=== PATIENT | female | born 1990 | race Hispanic/Latino ===

== ENCOUNTER 2017-01-04 20:28 | Emergency (ER) | payer OTHER ==
[~2017-01-04] VITALS: Ht 160 cm; Wt 123.8 kg
[2017-01-04 20:42] VITALS: BP 141/88; PULSE 102; RESP 16; O2SAT 99
--- NOTE | 2017-01-04 21:42 | ED.REPORT ---
HPI-Rash / Abscess Date of Service Jan 04, 2017 ED Provider: Josh Lundberg DO Pt is an otherwise healthy 26 year old female who presents to the ED complaining of back pain onset yesterday. She c/o associated skin swelling on her back. She denies any other symptoms. The pt reports that she was seen yesterday for the same symptoms and was diagnosed with an abscess; which she reports is more painful, but has not moved out of the lines that were drawn. Nursing Notes Stated Complaint: CYST ON BACK Chief Complaint: Wound Recheck/Suture Removal Nursing Notes Reviewed: Yes Allergies: Coded Allergies: No Known Allergies (Verified , M, 01/04/17) General Time Seen by MD: 21:42 Chief Complaint Abscess Hx Obtained From: Patient Arrived By: Walk-in Onset Occurred: Yesterday Symptom Duration: Since onset Location: : Back Quality: Painful Severity: Current: Moderate Severity: Maximum: Moderate Recent Healthcare: Recent doctor visit Similar Sx Previous: Yes Past Medical History Past Medical History Abscess Past Surgical History Reports: Appendectomy Smoking History Unknown if Ever Smoker Social History Alcohol Use: "Social" Drug Use: Denies drug use Other Social History: Good social support Ambulatory Status Independent Review of Systems Constitutional: Denies: Fever Respiratory: Denies: Non-productive cough Musculoskeletal: Reports: Back pain Skin: Reports Swelling Complete sys rev & neg: except as marked. Physical Exam Initial Vital Signs Vital Signs (First) Date Time Temp Pulse Resp B/P Pulse Ox O2 Delivery O2 Flow Rate FiO2 01/04/17 20:42 36.6 102 16 141/88 99 Room Air Initial VS: Reviewed Head / Eyes: Atraumatic, Normocephalic Neck: Supple, Full range of motion Respiratory: Breath sounds normal, Clear to auscultation, No respiratory distress Cardiovascular: Regular rate & rhythm, Heart sounds normal, Intact distal pulses Abdomen / GI: Soft, Non-tender Extremities: Vascular intact, Neuro intact Neurologic: Alert, Oriented, Nonfocal Psychiatric: Mood/affect normal, Behavior normal General/Constitutional: Awake, Alert, Cooperative Skin: Warm, Dry Cellulitis with tense induration on her back with 7cm diameter. Procedures Incision & Drainage Abscess Time: 22:36 Procedure Performed by: ED physician Consent / Setup / Site Prep: Consent from patient, Time-out performed, Hand hygiene observed, Stand sterile technique, Standard surgical scrub, Sterile drapes applied Skin Preparation Agent: Betadine Local Anesthesia: Lidocaine w epi 1% Incised Abscess with Scalpel: #11 Pus Drained: Medium (10 cc) Irrigation: Yes Post-Procedure / Complications: Packing placed, Drain placed, Culture obtained, Gram stain ordered, Dressing applied, No complications, Condition improved, Tolerated procedure well, Patient stable Re-Eval/Medical Decision Med Decision/Clinical Course The abscess drained well and without complications. I was very careful to avoid her ribs and thoracic structures. Nothing whatsoever made me think I caused her pneumothorax. I stayed well above the fascial planes. Pertinent material drained without problems. Packing placed. Will recheck tomorrow. Opiate warnings given. Source of Hx: Old records Re-Evaluation/Progress #1: Time of Eval: 22:20 Re-Evaluation/Progress Note: Pt rechecked. Informed pt of plan for treatment. Pt understands and agrees with plan for treatment. All questions addressed. Re-Evaluation/Progress #2: Time of Eval: 22:37 Re-Evaluation/Progress Note: Pt rechecked. Drained pt's abscess with her consent. Informed pt of plan for discharge. Pt understands and agrees with plan for discharge. F/U instructions and RTER warnings given. All questions addressed. Counseled Regarding: Diagnosis, Need for follow-up, When/why to return to ED Discharge & Departure Impression: Primary Impression: Abscess Additional Impression: Cellulitis Site of cellulitis: unspecified site Qualified Code: L03.90 - Cellulitis, unspecified Disposition: Home Discharge Condition All VS Reviewed: Yes Condition: Stable Patient Instructions: Abscess (ED), Cellulitis (ED) Additional Instructions: Continue with taking the Bactrim. Take doxycycline twice daily for 7 days. Avoid direct sunlight and sunlamp while taking the doxycycline. Take Percocet 1-2 every 6 hours as needed[address] not drive or drink alcohol or consume acetaminophen while taking the Percocet. The packing needs to be removed in 24 hours. You may remove the packing at home however if it is still draining then we will need a packing replacement so come to the emergency department for that . Either way and went to have a wound check in 48-72 hours but do not leave the packing in that long. Follow-up next week with her primary care physician as well. Referrals: [facility] (PCP) Scribe Attestation Portions of this note were transcribed by Chasidy Fernandez. I, Dr. Lundberg personally performed the history, physical exam and medical decision-making; I reviewed and confirmed the accuracy of the information in the transcribed note. Signed by : Roney Hinojosa, 01/04/17 and 23:30. copies to: [facility] ROBLES Todd P DO Jan 04, 2017 21:42 Chasidy Barron Jan 04, 2017 21:52
[2017-01-04] MEDS ORDERED: Lidocaine-Prilo 2.5-2.5% 30 Gm Cream TOPICAL ONE (21:50)
[2017-01-04] MEDS ORDERED: Lidocaine 1%-Epi 1:100,000 50 mL Inj NERVEBLOCK ONE (21:50)
[2017-01-04] MEDS ORDERED: HYDROcodone-APAP 5-325 mg Tablet PO ONE (21:50)
[2017-01-04] MEDS ORDERED: Lidocaine 1%-Epi 1:100,000 20 mL Inj NERVEBLOCK ONE (22:00)
[2017-01-04 23:20] VITALS: BP 131/79; PULSE 94; RESP 16; O2SAT 99
== END 2017-01-04 23:24 | disposition home or self-care (01) ==
LOC: SED 20:28
DX: L02.212 Cutaneous abscess of back [any part, except buttock and flank] (principal); L03.312 Cellulitis of back [any part except buttock and flank]

== ENCOUNTER 2017-01-05 17:57 | Emergency (ER) | payer OTHER ==
[~2017-01-05] VITALS: Ht 160 cm; Wt 123.5 kg
[2017-01-05 18:00] VITALS: BP 159/105; PULSE 126; RESP 20; O2SAT 96
--- NOTE | 2017-01-05 19:09 | ED.REPORT ---
HPI-Rash / Abscess Date of Service Jan 05, 2017 ED Provider: Dr. Josh Lundberg The patient is a 26 year old female who presents to the ED for a wound recheck for an abscess on her upper back. Pt was seen yesterday at the ED for similar symptoms. She c/o associated abscess pain and fever. Pt denies any other symptoms as well as nausea, vomiting, diarrhea, extremity pain, chills, fatigue , and malaise. Nursing Notes Stated Complaint: OPEN CYST ON BACK AND FEVER Chief Complaint: Skin Rash/Abscess Nursing Notes Reviewed: Yes Allergies: Coded Allergies: No Known Allergies (Verified , M, 01/04/17) General Time Seen by MD: 19:09 Chief Complaint Abscess Hx Obtained From: Patient Arrived By: Walk-in Onset Occurred: Just prior to arrival Symptom Duration: Since onset Location: : Back Quality: Painful Severity: Current: Mild Associated with: Reports Fever Pertinent Negative: Pt denies other symptoms Recent Healthcare: Recent doctor visit Similar Sx Previous: Yes Past Medical History Past Medical History Abscess Past Surgical History Reports: Appendectomy Smoking History Unknown if Ever Smoker Social History Alcohol Use: "Social" Drug Use: Denies drug use Other Social History: Good social support Ambulatory Status Independent Review of Systems Constitutional: Reports: Fever, Denies: Chills, Fatigue, Malaise GI: Denies: Abdominal pain, Diarrhea, Nausea, Vomiting Musculoskeletal: Denies: Extremity pain, Extremity swelling, Joint pain, Joint swelling Skin: Reports Swelling (abscess), Denies Diaphoresis Complete sys rev & neg: except as marked. Physical Exam Initial Vital Signs Vital Signs (First) Date Time Temp Pulse Resp B/P Pulse Ox O2 Delivery O2 Flow Rate FiO2 01/05/17 18:00 37.5 126 20 159/105 96 Room Air Initial VS: Reviewed General/Constitutional: Awake, Alert, Cooperative, Not toxic appearing Abscess Notes: Cellulitis with tense induration on her back Abscess #1 Location/Condition: Positive: Location (upper back) Head / Eyes: Atraumatic, Normocephalic ENT: Atraumatic, Mucous membranes moist Upper Extremity / MS: Atraumatic, Full range of motion, No deformity Lower Extremity / Pelvis / MS: Atraumatic, Full range of motion, No deformity Neurologic: Oriented X3, Speech NL, No motor deficits Back: Atraumatic, Full range of motion Wrist / Hand: Atraumatic, Full range of motion, No deformity Ankle / Foot: Atraumatic, Full range of motion, No deformity Re-Eval/Medical Decision Med Decision/Clinical Course 1899: Pt rechecked. Cellulitis is shrinking in size. There is still purulent drainage and packing will be replaced. 1937: Rechecked wound. Removed bandage, examined area, and repacked wound. There is significantly less discharge and drainage then yesterday. Plan for discharge and instructions given to follow up at ED again tomorrow. Pt understands and agrees with plan. All questions addressed. Her heart rate was 92 on my examination. She is very anxious. The pain is I think why she is tachycardic. The wound looks better than yesterday. I think she is going to be great. Re-Evaluation/Progress #1: Time of Eval: 19:00 Re-Evaluation/Progress Note: Pt rechecked. Cellulitis is shrinking in size. There is still perulent drainage and packing will be replaced. Re-Evaluation/Progress #2: Time of Eval: 19:38 Re-Evaluation/Progress Note: Rechecked wound. Removed bandage, examined area, and repacked wound. There is significantly less discharge and drainage then yesterday. Plan for discharge and instructions given to follow up at ED again tomorrow. Pt understands and agrees with plan. All questions addressed. Counseled Regarding: Diagnosis, Lab results, Need for follow-up, When/why to return to ED Discharge & Departure Impression: Primary Impression: Cellulitis Site of cellulitis: other site Qualified Code: L03.818 - Cellulitis of other sites Additional Impression: Abscess Disposition: Home Discharge Condition All VS Reviewed: Yes Condition: Stable Patient Instructions: Abscess (ED), Cellulitis (ED) Additional Instructions: Thank you for entrusting us with your care today. Your abscess is healing well. Take Ibuprofen as directed while you are at work for pain. Use Percocet when you are at home, as directed for pain. Continue taking your antibiotics as planned. Come back to the Emergency Room any time tomorrow between 6pm-3am for another wound recheck. Follow up with your primary care physician next week for further care. Return to the Emergency Department if you experience any new or worsening symptoms. I hope you feel better soon! Referrals: [facility] (PCP) [facility] Scribe Attestation Portion of this note were transcribed by Alma Newberry. I, Dr. Lundberg, personally performed the history, physical exam, and medical decision-making: I reviewed and confirmed the accuracy for the information in the transcribed note. Signed by: jaylon Dasilva, 01/05/17 2200 copies to: [facility] Josh Lundberg DO Jan 05, 2017 19:09 Alma Newberry Jan 05, 2017 19:43
[2017-01-05] MEDS ORDERED: Lidocaine 1%-Epi 1:100,000 50 mL Inj SUBQ ONE (19:10)
[2017-01-05] MEDS ORDERED: Lidocaine 1%/Epi 1:100,000 30 mL MDV ONE (19:18)
[2017-01-05] MEDS ORDERED: oxyCODONE-Acetamin 5-325 mg Tablet PO ONE (19:30)
== END 2017-01-05 20:05 | disposition home or self-care (01) ==
LOC: SED 17:57
DX: L03.312 Cellulitis of back [any part except buttock and flank] (principal); L02.212 Cutaneous abscess of back [any part, except buttock and flank]

== ENCOUNTER 2017-01-06 17:47 | Emergency (ER) | payer OTHER ==
[~2017-01-06] VITALS: Ht 160 cm; Wt 80.5 kg
[2017-01-06 18:08] VITALS: BP 138/96; PULSE 80; RESP 16; O2SAT 99
--- NOTE | 2017-01-06 19:12 | ED.REPORT ---
HPI-Rash / Abscess Date of Service Jan 06, 2017 ED Provider: Ata Shirley MD 26 y/o female with no pertinent hx presents to the ED for a wound recheck for an abscess on her upper back that was drained 2 days ago. The pt reports it has gotten significantly better though it is itchy and there was very little purulent discharge earlier today. She is continuing the doxycycline. Nursing Notes Stated Complaint: REPATCH MY OPEN CYST CUT Chief Complaint: Wound Recheck/Suture Removal Nursing Notes Reviewed: Yes Allergies: Coded Allergies: No Known Allergies (Verified , M, 01/06/17) General Time Seen by MD: 19:11 Chief Complaint Abscess (recheck after incision and drainage ) Hx Obtained From: Patient Arrived By: Walk-in Onset Occurred: 2 days ago Symptom Duration: 1 day Location: : Back (upper back) Quality: Itching Severity: Current: Mild Severity: Maximum: Mild Recent Healthcare: Recent doctor visit Similar Sx Previous: Yes Past Medical History Past Medical History Abscess Past Surgical History Reports: Appendectomy Smoking History Unknown if Ever Smoker Social History Alcohol Use: "Social" Drug Use: Denies drug use Other Social History: Good social support Ambulatory Status Independent Review of Systems Reports: itching around the drained abscess. Reports: little purulent discharge Complete sys rev & neg: except as marked. Physical Exam Initial Vital Signs Vital Signs (First) Date Time Temp Pulse Resp B/P Pulse Ox O2 Delivery O2 Flow Rate FiO2 01/06/17 18:08 36.4 80 16 138/96 99 Room Air Initial VS: Reviewed Head / Eyes: Atraumatic, Normocephalic Neck: Supple, Non-tender, Full range of motion Respiratory: Breath sounds normal, Clear to auscultation, No respiratory distress Cardiovascular: Regular rate & rhythm, Heart sounds normal, Intact distal pulses Abdomen / GI: Soft, Non-tender Extremities: Vascular intact, Neuro intact, No swelling, No tenderness Neurologic: Alert, Oriented, Nonfocal General/Constitutional: Awake, Alert, No acute distress, Cooperative Skin: Atraumatic, Color NL, Warm, Dry, Intact Abscess on pt's upper back is healing very well. Re-Eval/Medical Decision Re-Evaluation/Progress : Time of Eval: 19:22 Re-Evaluation/Progress Note: Rechecked wound and replaced bandage. Recommended continuing docycline. Discussed plan to discharge. She understands and agrees with the plan. All questions answered. Counseled Regarding: Diagnosis, Need for follow-up, When/why to return to ED Discharge & Departure Shift Change Sign-Out Response to Therapy: Improved Impression: Primary Impression: Abscess Additional Impression: Cellulitis Site of cellulitis: trunk Site of cellulitis of trunk: back Qualified Code : L03.312 - Cellulitis of back [any part except buttock] Disposition: Home Patient Instructions: Abscess (GEN), Abscess Incision and Drainage (DC) Additional Instructions: This is looking better each day. You are still draining pus. If the wound starts to close and the packing needs to be replaced. I recommend that she set up a follow-up with a general surgeon. If this is not improved to the point of near complete resolution in 3-4 days that I think he will need a wider incision and drainage. Call the surgical clinic to set up follow-up for later this week. Tell them that she was seen in the emergency department. Take doxycycline twice daily for an additional 5 days. Percocet one to 2 every [address] or drink alcohol or take any other acetaminophen while taking the Percocet Referrals: Can Calhoun MDibe Attestation Portions of this note were transcribed by Noah Rivero. I,, personally performed the history, physical exam and medical decision- making;I reviewed and confirmed the accuracy of the information in the transcribed note. Signed by Roney Muse. 01/06/17 19:28 copies to: Can Calhoun MD, Todd P DO Jan 06, 2017 19:12 Noah Rivero Jan 06, 2017 19:19
== END 2017-01-06 19:38 | disposition home or self-care (01) ==
LOC: SED 17:47
DX: Z48.02 Encounter for removal of sutures (principal)